=== PATIENT | male | born 1985 | race Caucasian/White ===

== ENCOUNTER 2017-12-18 21:17 | Emergency (ER) | payer BC, MEDICAID, OTHER, SELFPAY ==
[~2017-12-18] VITALS: Ht 180.3 cm; Wt 83.8 kg
[2017-12-18] MEDS ORDERED: SUPPLEMENTS (21:25)
[2017-12-18] MEDS ORDERED: HYDROcodone/APAP 5/325 TABLET ONE (21:52)
[2017-12-18] MEDS ORDERED: HYDROcodone/APAP 5/325 TABLET PO ONE (22:00)
[2017-12-18 23:10] VITALS: BP 134/84
== END 2017-12-18 23:12 | disposition home or self-care (01) ==
LOC: ED 22:33
DX: J20.9 Acute bronchitis, unspecified (principal); F17.200 Nicotine dependence, unspecified, uncomplicated
CPT/HCPCS: 71046; 99284

== ENCOUNTER 2018-07-22 11:27 | Emergency (ER) | payer MEDICAID ==
[~2018-07-22] VITALS: Ht 180.3 cm; Wt 90.0 kg
[~2018-07-22 11:27] MED LIST: SUPPLEMENTS
--- NOTE | 2018-07-22 12:15 | NUR ---
report received from BRANDEE Sapp, pt a&o, resps even and unlabored. warm blanket provided. bp and spo2 monitors in place. awaiting MD and orders at this time.
[2018-07-22] MEDS ORDERED: AZITHROMYCIN 250 MG TABLET PO ONE (13:00)
[2018-07-22] MEDS ORDERED: CEFTRIAXONE 250 MG IM ONE (13:00)
[2018-07-22] MEDS ORDERED: HYDROcodone/APAP 5/325 TABLET PO ONE (13:00)
[2018-07-22] MEDS ORDERED: HYDROcodone/APAP 5/325 TABLET ONE (13:20)
[2018-07-22] MEDS ORDERED: AZITHROMYCIN 500 MG TABLET ONE (13:20)
[2018-07-22] MEDS ORDERED: CEFTRIAXONE 250 MG ONE (13:21)
--- NOTE | 2018-07-22 13:30 | NUR ---
PT MEDICATED PER EMAR BY TASK BRANDEE KAUFFMAN, TOLERATED WELL.
--- NOTE | 2018-07-22 14:00 | NUR ---
PT REPORTS PAIN TO PENIS IMPROVED S/P [facility]CO. PT A&O, RESPS EVEN AND UNLABORED, TO BE DISCHARGED.
[2018-07-22 14:18] VITALS: BP 121/73
== END 2018-07-22 14:22 | disposition home or self-care (01) ==
LOC: ED 12:43
DX: A56.01 Chlamydial cystitis and urethritis (principal); A54.01 Gonococcal cystitis and urethritis, unspecified; F17.200 Nicotine dependence, unspecified, uncomplicated
CPT/HCPCS: 96372; 99283; J0696

== ENCOUNTER 2019-05-28 00:54 | Emergency (ER) | payer MEDICAID ==
[~2019-05-28] VITALS: Ht 180.3 cm; Wt 83.2 kg
[2019-05-28] MEDS ORDERED: SODIUM CHLORIDE FLUSH 10ML SYR IVF ONE (01:00)
[2019-05-28] MEDS ORDERED: SODIUM CHLORIDE 0.9% 1,000ML IVBOLUS ONE (01:00)
[2019-05-28] MEDS ORDERED: ONDANSETRON 2MG/ML, 2ML ONE (01:03)
[2019-05-28 01:09] LABS: BASOPHILS % (AUTO) 0 % (0-1); EOSINOPHILS # (AUTO) 0.17 x10^3/uL (0-0.4); EOSINOPHILS % (AUTO) 2 % (1-7); LYMPHOCYTES # (AUTO) 1.09 x10^3/uL (1-3.4); LYMPHOCYTES % (AUTO) 15 % (22-44); MD NO; MEAN CORPUSCULAR HEMOGLOBIN 26.7 pg (27.5-34.5); MEAN CORPUSCULAR HGB CONC 33.6 g/dL (33.2-36.2); MEAN CORPUSCULAR VOLUME 79.5 fL (81-97); MEAN PLATELET VOLUME 8.3 fL (7.4-10.4); MONOCYTES # (AUTO) 0.96 x10^3/uL (0.2-0.8); MONOCYTES % (AUTO) 13 % (2-9); NEUTROPHILS # (AUTO) 5.26 x10^3/uL (1.8-6.8); NEUTROPHILS % (AUTO) 70 % (42-75); PLATELET COUNT 220 x10^3/uL (130-400); RED BLOOD COUNT 5.15 x10^6/uL (4.38-5.82); RED CELL DISTRIBUTION WIDTH 14.1 % (9.4-14.8)
--- NOTE | 2019-05-28 01:10 | NUR ---
THIS IS A 33Y M BIB EMS FROM RETIREMENT FOR N/V/D X1HOUR PT STS HE LAST ATE AROUND 1700. PT CONNECTED TO MONITORING, VSS, PT MEDICATED PER MAR, IV FLUIDS INFUSING.
[2019-05-28 01:20] LABS: ALANINE AMINOTRANSFERASE 19 U/L (12-78); ALBUMIN 3.6 g/dL (3.4-5.0); ANION GAP 5 mmol/L (5-15); CALCIUM 7.7 mg/dL (8.5-10.1); CHLORIDE 109 mmol/L (98-107); CREATININE 1.03 mg/dL (0.7-1.3)
[2019-05-28 01:22] LABS: ALKALINE PHOSPHATASE 57 U/L (45-117); BILIRUBIN,TOTAL 0.4 mg/dL (0.2-1.0); TOTAL PROTEIN 6.8 g/dL (6.4-8.2)
[2019-05-28] MEDS ORDERED: ONDANSETRON 2MG/ML, 2ML IVPush ONE (01:30)
[2019-05-28 02:58] VITALS: BP 102/53
== END 2019-05-28 04:34 | disposition home or self-care (01) ==
LOC: ED 04:27
DX: R10.84 Generalized abdominal pain (principal); R11.2 Nausea with vomiting, unspecified; R19.7 Diarrhea, unspecified; F17.200 Nicotine dependence, unspecified, uncomplicated
CPT/HCPCS: 36415; 80053; 83690; 85025; 96361; 96374; 99283; J2405; J7030

== ENCOUNTER 2019-11-11 17:17 | Emergency (ER) | payer MEDICAID ==
[~2019-11-11] VITALS: Ht 180.3 cm; Wt 78.0 kg
[2019-11-11 17:18] VITALS: BP 114/68
--- NOTE | 2019-11-11 17:55 | NUR ---
PT REFUSING ALL MEDICATIONS INCLUDING LIDOCAINE. PT STATES HE DOES NOT WANT NARCOTIC PAIN MEDS. PT ADVISED THAT NON NARCOTICS WERE ORDERED. PT THEN STATED " THE FUCK THEY WERE, I KNOW YOU'RE FUCKING LYING TO ME." PROVIDER MADE AWARE OF SITUATION. PT CAN BE HEARD SHOUTING PROFANITIES FROM [facility]. PT ASKED TO PLEASE TRY AND REFRAIN. PT DOES NOT. PT REASSURED THAT STAFF ARE TRYING TO HELP AND HE CONTINUES TO USE PROFANITIES STATING "WELL I GUESS NOW YOU JUST WANT TO FUCKING DISCHARGE ME DON'T YOU?" MD IS AT BEDSIDE TO SPEAK WITH PT.
[2019-11-11] MEDS ORDERED: LORazepam 2 MG/ML, 1ML IVPush ONE (18:00)
[2019-11-11] MEDS ORDERED: SODIUM CHLORIDE 0.9% 1,000ML IVBOLUS ONE (18:00)
[2019-11-11] MEDS ORDERED: SODIUM CHLORIDE FLUSH 10ML SYR IVF ONE (18:00)
[2019-11-11] MEDS ORDERED: LIDOCAINE 1%, 10ML INFIL ONE (18:00)
[2019-11-11] MEDS ORDERED: DIPH,PERTUSS(ACELL),TET VAC/PF 0.5 ML IM-VACC ONE (18:00)
[2019-11-11] MEDS ORDERED: KETOROLAC 30 MG/1 ML IVPush ONE (18:00)
--- NOTE | 2019-11-11 18:24 | NUR ---
PT VISUALIZED LEAVING THE BUILDING. SECURITY WAS CALLED BY ANOTHER RN. PT THREATENING STAFF ON THE WAY OUT AND AGAIN THREATENING SECURITY. PT ESCORTED OFF PROPERTY BY SECURITY.
== END 2019-11-11 18:27 ==
LOC: ED 18:20
DX: S01.81XA Laceration without foreign body of other part of head, initial encounter (principal); S60.221A Contusion of right hand, initial encounter; S09.90XA Unspecified injury of head, initial encounter; F15.10 Other stimulant abuse, uncomplicated; F17.200 Nicotine dependence, unspecified, uncomplicated; Y04.8XXA Assault by other bodily force, initial encounter; Y92.89 Other specified places as the place of occurrence of the external cause; Y99.8 Other external cause status; Y93.89 Activity, other specified
CPT/HCPCS: 99283